=== PATIENT | male | born 1960 | race Caucasian/White ===

== ENCOUNTER 2019-03-10 18:30 | Emergency (ER) | payer OTHER, SELFPAY ==
[2019-03-10 19:16] LABS: #Basophils 0.1 thou/uL (0.0-0.2); #Monocytes 0.8 thou/uL (0.11-0.59); #Neutrophils 5.6 thou/uL (1.40-6.50); %Basophils 0.8 % (0.0-1.0); %Eosinophils 0.4 % (0.0-10.0); %Lymphocytes 23.6 % (21.0-51.0); %Monocytes 8.9 % (0.0-10.0); %Neutrophils 66.2 % (42.0-75.0); Hemoglobin 15.3 g/dL (14.0-18.0); Mean Corpuscular HGB CONC 33.1 g/dL (32.0-36.0); Mean Corpuscular Hemoglobin 33.9 pg (27.0-31.0); Mean Platelet Volume 7.2 fL (7.4-10.4); Platelet Count 303 thou/uL (130-400); RBC Distribution Width 12.3 % (11.5-14.5); Red Blood Cell (RBC) Count 4.51 mill/uL (4.70-6.10); White Blood Cell (WBC) Count 8.5 thou/uL (4.8-10.8)
[2019-03-10 19:40] LABS: ALT (SGPT) 61 U/L (8-55); AST (SGOT) 33 U/L (5-34); Alkaline Phosphatase 91 U/L (40-150); Anion Gap 14 mmol/L (10-20); BUN (Urea Nitrogen) 22 mg/dL (8.4-25.7); Calc. Creatinine Clearance 0 mL/min (70-130); Calcium 9.6 mg/dL (7.8-10.44); Carbon Dioxide 24 mmol/L (22-29); Chloride 100 mmol/L (98-107); Estimated GFR-MDRD 77; Globulin 3.8 g/dL (2.4-3.5); Glucose 106 mg/dL (70-105); Potassium 4.3 mmol/L (3.5-5.1); Protein, Total 7.8 g/dL (6.0-8.3); Sodium 134 mmol/L (136-145)
[2019-03-10 20:30] LABS: Bacteria/HPF None Seen HPF (None Seen); Bilirubin Negative (Negative); Blood, Urine Negative (Negative); Clarity Clear (Clear); Glucose, Urine (Dipstick) Normal (Negative); Leukocyte Negative Leu/uL (Negative); Nitrite Negative (Negative); Protein, Urine (Dipstick) 30 mg/dL (Neg-Trace); Squamous Epithelial 0-3 HPF (0-3); Urobilinogen Normal mg/dL (Less than 2); WBC/HPF 0-3 HPF (0-3)
[2019-03-10 20:35] LABS: RBC/HPF 0-3 HPF (0-3)
[2019-03-10] MEDS ORDERED: Thiamine 100 MG TAB ONE (20:35)
== END 2019-03-10 21:28 | disposition home or self-care (01) ==
LOC: ERS 18:30
DX: K92.2 Gastrointestinal hemorrhage, unspecified (principal); F17.220 Nicotine dependence, chewing tobacco, uncomplicated
CPT/HCPCS: 36415; 80053; 81003; 81015; 82274; 85025; 93005; 96360

== ENCOUNTER 2022-11-24 15:32 | Inpatient (IN) | payer SELFPAY ==
[2022-11-24] MEDS ORDERED: Ketorolac Tromethamine 30 MG/ML VIAL ONE (16:02)
[2022-11-24] MEDS ORDERED: Morphine 4 MG/ML VIAL ONE (16:02)
[2022-11-24 16:26] LABS: #Basophils 0.1 thou/uL (0.0-0.2); #Lymphocytes 0.9 thou/uL (1.20-3.40); #Monocytes 1.2 thou/uL (0.11-0.59); #Neutrophils 8.9 thou/uL (1.40-6.50); %Basophils 0.5 % (0.0-1.0); %Eosinophils 0.2 % (0.0-10.0); %Lymphocytes 7.7 % (21.0-51.0); %Neutrophils 80.6 % (42.0-75.0); Hemoglobin 15.3 g/dL (14.0-18.0); Mean Corpuscular HGB CONC 33.8 g/dL (32.0-36.0); Mean Corpuscular Hemoglobin 34.7 pg (27.0-31.0); Mean Platelet Volume 6.6 fL (7.4-10.4); Platelet Count 234 10x3/uL (130-400); RBC Distribution Width 12.4 % (11.5-14.5); Red Blood Cell (RBC) Count 4.41 mill/uL (4.70-6.10)
[2022-11-24 16:36] LABS: PTT 31.4 sec (22.9-36.1); Prothrombin Time 13.8 sec (12.0-14.7)
[2022-11-24 16:45] LABS: ALT (SGPT) 47 U/L (8-55); AST (SGOT) 54 U/L (5-34); Albumin 3.7 g/dL (3.5-5.0); Alkaline Phosphatase 79 U/L (40-110); Anion Gap 19 mmol/L (10-20); BUN (Urea Nitrogen) 6 mg/dL (8.4-25.7); Bilirubin, Total 1.7 mg/dL (0.2-1.2); Calc. Creatinine Clearance 0 mL/min (70-130); Calcium 9.3 mg/dL (7.8-10.44); Carbon Dioxide 16 mmol/L (22-29); Chloride 104 mmol/L (98-107); Estimated GFR 79; Globulin 3.7 g/dL (2.4-3.5); Glucose 123 mg/dL (70-105); Potassium 4.2 mmol/L (3.5-5.1); Protein, Total 7.4 g/dL (6.0-8.3); Sodium 135 mmol/L (136-145)
[2022-11-24] MEDS ORDERED: TETANUS, DIPHTHERIA TOX,ADULT (TDVAX) 0.5 ML VIAL IM ONE (17:20)
[2022-11-24] MEDS ORDERED: Ipratropium/Albuterol 3 ML NEB NEB PRN (17:20)
[2022-11-24] MEDS ORDERED: Morphine 2 MG/ML VIAL SLOW IVP PRN (17:20)
[2022-11-24] MEDS ORDERED: Ondansetron PF 4 MG/2 ML Vial IVP PRN (17:20)
[2022-11-24] MEDS ORDERED: traMADol HCl 50 MG TAB PO PRN (17:23)
[2022-11-24] MEDS: Acetaminophen 500 MG TAB PO SCH (18:43)
[2022-11-24] MEDS: traMADol HCl 50 MG TAB PO SCH (18:44)
[2022-11-24 19:57] VITALS: BMI 24.4
[2022-11-24] MEDS: Famotidine 20 MG TAB PO SCH (20:07)
[2022-11-24] MEDS: Sodium Chloride 0.9% 1,000 ML IV SCH (20:07)
[2022-11-24] MEDS: Senokot S 8.6-50 MG TAB PO SCH (20:07)
[2022-11-24] MEDS: Oxazepam 10 MG CAP PO SCH (21:44)
[2022-11-24] MEDS: Cyclobenzaprine 10 MG TAB PO PRN (21:44)
[2022-11-24] MEDS: Famotidine/PF 20 mg/2ml Vial SLOW IVP SCH (21:44)
[2022-11-25] MEDS: traMADol HCl 50 MG TAB PO SCH ×4 (00:11→17:02)
[2022-11-25] MEDS: Acetaminophen 500 MG TAB PO SCH ×4 (00:11→17:01)
[2022-11-25] MEDS: Sodium Chloride 0.9% 1,000 ML IV SCH ×2 (04:20→11:41)
[2022-11-25] MEDS: Oxazepam 10 MG CAP PO SCH ×3 (05:38→20:41)
[2022-11-25 05:55] LABS: Anion Gap 8 mmol/L (10-20); BUN (Urea Nitrogen) 8 mg/dL (8.4-25.7); Calc. Creatinine Clearance 109 mL/min (70-130); Calcium 8.3 mg/dL (7.8-10.44); Carbon Dioxide 26 mmol/L (22-29); Chloride 104 mmol/L (98-107); Estimated GFR 99; Glucose 87 mg/dL (70-105); Potassium 3.8 mmol/L (3.5-5.1); Sodium 134 mmol/L (136-145)
[2022-11-25 06:00] LABS: Mean Corpuscular HGB CONC 31.3 g/dL (32.0-36.0); Mean Corpuscular Hemoglobin 33.2 pg (27.0-31.0); Mean Platelet Volume 6.6 fL (7.4-10.4); Platelet Count 211 10x3/uL (130-400); RBC Distribution Width 12.3 % (11.5-14.5); Red Blood Cell (RBC) Count 3.93 mill/uL (4.70-6.10)
[2022-11-25 06:10] LABS: INR-International Normal Ratio 1.2; PTT 36.8 sec (22.9-36.1)
[2022-11-25 06:36] LABS: #Eosinphils 0.1 thou/uL (0.0-0.7); #Lymphocytes 1.3 thou/uL (1.20-3.40); #Neutrophils 4.7 thou/uL (1.40-6.50); %Basophils 0.3 % (0.0-1.0); %Eosinophils 0.8 % (0.0-10.0); %Lymphocytes 18.7 % (21.0-51.0); %Monocytes 13.5 % (0.0-10.0); %Neutrophils 66.8 % (42.0-75.0)
[2022-11-25] MEDS ORDERED: Clindamycin/D5W 900 MG in Premix Bag 1 BAG IVPB SCH (07:15)
[2022-11-25] MEDS: Famotidine/PF 20 mg/2ml Vial SLOW IVP SCH (08:42)
[2022-11-25] MEDS: Senokot S 8.6-50 MG TAB PO SCH ×2 (08:43→20:40)
[2022-11-25] MEDS: Polyethylene Glycol 3350 17 GM Packet PO SCH (08:43)
[2022-11-25] MEDS: Folic Acid 1 MG TAB PO SCH (08:43)
[2022-11-25] MEDS: Thiamine 100 MG TAB PO SCH (08:43)
[2022-11-25] MEDS: Famotidine 20 MG TAB PO SCH (08:43)
[2022-11-25] MEDS ORDERED: FENTANYL 50 MCG/ML 1 ML VIAL ONE ×5 (12:42→15:59)
[2022-11-25] MEDS ORDERED: HYDROmorphone 0.5 MG/0.5 ML SYRINGE ONE ×3 (12:42→15:21)
[2022-11-25] MEDS ORDERED: Midazolam HCl 2 mg/2 ml Vial ONE ×2 (12:42→12:48)
[2022-11-25] MEDS ORDERED: Clindamycin/D5W 900 mg/50 ml Premix Bag ONE (12:48)
[2022-11-25] MEDS ORDERED: Rocuronium Bromide 10 MG/ML (10ML VIAL) ONE (12:55)
[2022-11-25] MEDS ORDERED: NEOSTIGMINE 3 MG/3 ML SYR 3 MG/3 ML SYRINGE ONE (12:55)
[2022-11-25] MEDS ORDERED: Lidocaine 1% PF 5 ML VIAL ONE (12:55)
[2022-11-25] MEDS ORDERED: PROPOFOL 200 MG/20 ML VIAL ONE (12:55)
[2022-11-25] MEDS ORDERED: GLYCOPYRROLATE/PF 0.2 MG/ML VIAL ONE (12:55)
[2022-11-25] MEDS ORDERED: Dexamethasone 20 MG/5 ML VIAL ONE (12:55)
[2022-11-25] MEDS ORDERED: Ondansetron PF 4 MG/2 ML Vial ONE (12:55)
[2022-11-25] MEDS ORDERED: HYDROmorphone 2 MG/ML VIAL SLOW IVP PRN (13:28)
[2022-11-25] MEDS ORDERED: Promethazine HCl 25 MG/ML VIAL IM PRN (13:28)
[2022-11-25] MEDS ORDERED: Ondansetron HCl/PF 4 MG/2 ML Vial IVP PRN (13:28)
[2022-11-25] MEDS: Cyclobenzaprine 10 MG TAB PO PRN (17:02)
[2022-11-26] MEDS: traMADol HCl 50 MG TAB PO SCH ×4 (00:05→17:13)
[2022-11-26] MEDS: Acetaminophen 500 MG TAB PO SCH ×4 (00:05→17:12)
[2022-11-26] MEDS: Oxazepam 10 MG CAP PO SCH ×3 (05:06→21:02)
[2022-11-26 06:27] LABS: #Lymphocytes 0.6 thou/uL (1.20-3.40); #Monocytes 0.8 thou/uL (0.11-0.59); #Neutrophils 9.6 thou/uL (1.40-6.50); %Basophils 0.1 % (0.0-1.0); %Eosinophils 0.2 % (0.0-10.0); %Lymphocytes 5.6 % (21.0-51.0); %Monocytes 6.9 % (0.0-10.0); %Neutrophils 87.3 % (42.0-75.0); Hemoglobin 13.4 g/dL (14.0-18.0); Mean Corpuscular HGB CONC 32.4 g/dL (32.0-36.0); Mean Corpuscular Hemoglobin 34.5 pg (27.0-31.0); Mean Platelet Volume 6.9 fL (7.4-10.4); Platelet Count 213 10x3/uL (130-400); RBC Distribution Width 12.1 % (11.5-14.5); Red Blood Cell (RBC) Count 3.89 mill/uL (4.70-6.10)
[2022-11-26] MEDS: Aspirin 81 mg Enteric Coated Tablet PO SCH ×2 (08:17→21:03)
[2022-11-26] MEDS: Polyethylene Glycol 3350 17 GM Packet PO SCH (08:17)
[2022-11-26] MEDS: Senokot S 8.6-50 MG TAB PO SCH ×2 (08:18→21:02)
[2022-11-26] MEDS: Thiamine 100 MG TAB PO SCH (08:18)
[2022-11-26] MEDS: Folic Acid 1 MG TAB PO SCH (08:18)
[2022-11-26] MEDS: Cyclobenzaprine 10 MG TAB PO PRN ×2 (08:29→14:47)
[2022-11-26] MEDS: Clindamycin/D5W 900 MG in Premix Bag 1 BAG IVPB SCH ×2 (09:55→17:14)
[2022-11-26] MEDS ORDERED: Ibuprofen 200 MG TAB PO PRN (11:12)
[2022-11-27] MEDS: Acetaminophen 500 MG TAB PO SCH ×4 (00:08→17:50)
[2022-11-27] MEDS: traMADol HCl 50 MG TAB PO SCH ×4 (00:08→17:50)
[2022-11-27] MEDS: Oxazepam 10 MG CAP PO SCH ×3 (05:54→20:52)
[2022-11-27] MEDS: Senokot S 8.6-50 MG TAB PO SCH ×2 (09:12→20:52)
[2022-11-27] MEDS: Folic Acid 1 MG TAB PO SCH (09:12)
[2022-11-27] MEDS: Thiamine 100 MG TAB PO SCH (09:12)
[2022-11-27] MEDS: Aspirin 81 mg Enteric Coated Tablet PO SCH ×2 (09:12→20:52)
[2022-11-27] MEDS: Polyethylene Glycol 3350 17 GM Packet PO SCH (09:12)
[2022-11-27] MEDS ORDERED: FLU VACC QS2022-23(6MO UP)/PF 60 MCG/0.5 ML SYRINGE IM ONE (20:15)
[2022-11-28] MEDS: Acetaminophen 500 MG TAB PO SCH ×3 (00:48→11:15)
[2022-11-28] MEDS: traMADol HCl 50 MG TAB PO SCH ×3 (00:48→11:15)
[2022-11-28 05:15] VITALS: TEMP 97.7
[2022-11-28] MEDS: Oxazepam 10 MG CAP PO SCH (05:45)
[2022-11-28] MEDS: Thiamine 100 MG TAB PO SCH (08:41)
[2022-11-28] MEDS: Aspirin 81 mg Enteric Coated Tablet PO SCH (08:41)
[2022-11-28] MEDS: Folic Acid 1 MG TAB PO SCH (08:41)
[2022-11-28] MEDS: Senokot S 8.6-50 MG TAB PO SCH (08:42)
[2022-11-28] MEDS: Polyethylene Glycol 3350 17 GM Packet PO SCH (08:42)
[2022-11-28] MEDS: Cyclobenzaprine 10 MG TAB PO PRN (08:44)
[2022-11-28 11:35] VITALS: BP 158/88
== END 2022-11-28 11:45 | disposition home or self-care (01) | DRG 482 ==
LOC: ERS 15:32 → SURG A 17:24
PROVIDERS: ADMIT Surgery; ATTEND Surgery
PROC: 0QS704Z Reposition Left Upper Femur with Internal Fixation Device, Open Approach (ICD-10-PCS; principal; 2022-11-25)
DX: S72.142A Displaced intertrochanteric fracture of left femur, initial encounter for closed fracture (principal); W18.09XA Striking against other object with subsequent fall, initial encounter; Z20.822 Contact with and (suspected) exposure to COVID-19; F17.220 Nicotine dependence, chewing tobacco, uncomplicated; F10.10 Alcohol abuse, uncomplicated; I73.9 Peripheral vascular disease, unspecified; Z88.0 Allergy status to penicillin; Z90.89 Acquired absence of other organs
CPT/HCPCS: 36415; 70450; 71045; 72125; 72170; 80048; 80053; 82550; 85025; 85610; 85730; 86850; 86900; 86901; 93005; 96374; 96375; C1713; G0390; J1100; J1170; J1885; J2250; J2270; J2405; J2704; J3010; J3490; J7050; S0028